=== PATIENT | male | born 1975 | race African-American/Black ===

== ENCOUNTER 2025-03-03 14:43 | Emergency (ER) | payer BC ==
[~2025-03-03] VITALS: Ht 195.6 cm; Wt 89.9 kg
[2025-03-03 15:21] LABS: Hematocrit 49.3 % (41.0-53.0); Hemoglobin 16.9 g/dL (13.5-17.5); Mean Corpuscular Hemoglobin 31.1 pg (28.0-32.0); Mean Corpuscular Volume 90.9 fL (80.0-100.0); Nucleated Red Blood Cells % 0.1 %
--- NOTE | 2025-03-03 15:33 | ED.PDOC ---
General HPI Comments A 50 YEAR OLD MALE PRESENTS TO THE ED WITH COMPLAINT OF RIGHT FLANK PAIN. PATIENT STATES HE HAS BEEN EXPERIENCING RIGHT FLANK PAIN THAT IS WORSE WITH MOVEMENT AND WHEN STANDING UP FOR THE PAST 6 DAYS. PATIENT NOTES HE WENT TO [facility] RECENTLY WHERE A CT SCAN WAS DONE WHICH SHOWED DIVERTICULOSIS, BUT NOT OTHER FINDINGS. PATIENT DENIES DYSURIA, HEMATURIA, FEVER, CHILLS, SHORTNESS OF BREATH, CHEST PAIN, ABDOMINAL PAIN, NAUSEA, VOMITIN G, HEADACHE, OR OTHER COMPLAINTS. NO OTHER SYMPTOMS OR MODIFYING FACTORS AT THIS TIME. PATIENT IS ALERT, ORIENTED X 4, AND HAS STEADY GAIT. Chief Complaint: Flank Pain Time Seen by MD: 14:55 Reviewed notes: Nurses Notes, Medications, Allergies Allergies: Coded Allergies: NO KNOWN ALLERGIES (Unverified , 03/03/25) Home Meds Active Scripts Lactulose (Lactulose) 10 Gm/15 Ml Radha, 30 ML PO BID, #280 ML Prov:REBECCA DONALD 03/03/25 Methocarbamol (Methocarbamol) 750 Mg Tab, 750 MG PO BID, #20 TAB Prov:REBECCA DONALD 03/03/25 Ibuprofen (Ibuprofen) 800 Mg Tab, 1 TAB PO TID, #40 TAB Prov:REBECCA DONALD 03/03/25 Information Source: Patient Mode of Arrival: Ambulatory Severity: Moderate Inability to void: None Timing: Days Duration: Since onset, Days Prehospital treatment: None Onset: Spontaneous Symptoms: Other (RIGHT FLANK PAIN) History of: None Location: (R) Flank Penile discharge: None Modifying factors: None associated signs and symptoms: Flank Pain, Back Pain Past Medical History PAST MEDICAL HISTORY: Denies Surgical History: Denies all surgeries Family History Family History: Reviewed,noncontributory to illness Social History Smoker: Non-Smoker Alcohol: Denies ETOH Use Drugs: Denies Drug Use Lives In: Home Constitutional: denies: chills, diaphoresis, fatigue, fever, malaise, sweats, weakness, others EENTM: denies: blurred vision, double vision, ear bleeding, ear discharge, ear drainage, ear pain, ear ringing, eye pain, eye redness, hearing loss, mouth pain, mouth swelling, nasal discharge, nose bleeding, nose congestion, nose pain, photophobia, tearing, throat pain, throat swelling, voice changes, others Respiratory: denies: cough, hemoptysis, orthopnea, SOB at rest, shortness of breath, SOB with excertion, stridor, wheezing, others Cardiovascular: denies: chest pain, dizzy spells, diaphoresis, Dyspnea on exertion, edema, irregular heart beat, left arm pain, lightheadedness, palpitations, PND, syncope, others Gastrointestinal: denies: abdomen distended, abdominal pain, blood streaked bowels, constipated, diarrhea, dysphagia, difficulty swallowing, hematemesis, melena, nausea, poor appetite, poor fluid intake, rectal bleeding, rectal pain, vomiting, others Genitourinary: reports: flank pain; denies: burning, dysuria, frequency, hematuria, incontinence, penile discharge, penile sore, pain, testicle pain, testicle swelling, urgency, others Neurological: denies: dizziness, fainting, headache, left sided numbness, left sided weakness, numbness, paresthesia, pre-existing deficit, right sided numbness, right sided weakness, seizure, speech problems, tingling, tremors, weakness, others Musculoskeletal: reports: back pain, muscle pain; denies: gout, joint pain, lennox nt swelling, muscle stiffness, neck pain, others Integumetry: denies: bruises, change in color, change in hair/nails, dryness, laceration, lesions, lumps, rash, wounds, others Allergic/Immunocompromised: denies: Difficulty Healing, Frequent Infections, Hives, Itching, others Hematologic/Lymphatic: denies: anemia, blood clots, easy bleeding, easy bruising, swollen glands, others Endocrine: denies: excessive hunger, excessive sweating, excessive thirst, excessive urination, flushing, intolerance to cold, intolerance to heat, unexplained weight gain, unexplained weight loss, others Psychiatric: reports: anxiety; denies: bipolar disorder, depression, hopeless, panic disorder, schizophrenia, sleepless, suicidal, others All Other Systems: Reviewed and Negative Physical Exam General Appearance: No Apparent Distress, Normal HEENT: Normal ENT Inspection, PERRL/EOMI, Pharynx Normal, TMs Normal Neck: Full Range of Motion, Non-Tender, Normal, Normal Inspection Respiratory: Chest Non-Tender, Lungs Clear, No Accessory Muscle Use, No Respiratory Distress, Normal Breath Sounds Cardiovascular: No Edema, No JVD, No Murmur, No Gallop, Normal Peripheral Pulses, Regular Rate/Rhythm Breast Exam: Deferred Gastrointestinal: No Organomegaly, No Pulsatile Mass, Normal Bowel Sounds, Soft, Tenderness (RIGHT FLANK, NO GUARDING AND REBOUND TENDERNESS, NO CVA TENDERNESS. ) Genitalia: Deferred Pelvic: Deferred Rectal: Deferred Extremities: No calf tenderness, Normal capillary refill, Normal inspection, Normal range of motion, Non-tender, No pedal edema Musculoskeletal : Location: Right Extremity Location: Back Apperance: Tenderness: Moderate (AND MUSC;LE SPASM ON RIGHT LOWER BACK, NO BONY TENDERNESS, SWELLING AND DEFORMITY. ) Neurologic: Alert, data integrity specialist II-XII nml as Tested, No Motor Deficits, Normal Affect, Normal Mood, No Sensory Deficits Cerebellar Function: Normal Reflexes: Normal Skin: Dry, Normal Color, Warm Peripheral Pulses: 2+ carotid (R), 2+ carotid (L) Lymphatic: No Adenopathy Was a procedure done? Was a procedure done?: No Differential Diagnosis Kidney stone (Female): N/A Kidney stone (Male): DJD, Strain, Urolithiasis, Urinary tract infection Penile/Scrotal: N/A Urinary Problem (Male): Urolithiasis, UTI, N/A X-Ray, Labs, Meds, VS Vital Signs Date Time Temp Pulse Resp B/P (MAP) Pulse Ox O2 Delivery O2 Flow Rate FiO2 03/03/25 14:47 98.3 65 13 126/79 98 98.3 Lab Test 03/03/25 15:48 03/03/25 15:02 Range/Units Urine Color Light-yellow Yellow Urine Clarity Clear Clear Urine pH 6.0 5.0-9.0 Urine Specific [place] 1.010 1.001-1.035 Urine Protein Negative Negative Urine Ketones 1+ H Negative Urine Blood Negative Negative /uL Urine Nitrite Negative Negative Urine Bilirubin Negative Negative Urine Urobilinogen Normal Negative mg/dL Urine Leukocyte Esterase Negative Negative /uL Urine RBC <1 0 - 3 /hpf Urine Microscopic WBC < 1 0-3 /HPF Urine Squamous Epithelial Cells None seen <5 /hpf Urine Bacteria None seen None Seen /hpf Urine Glucose Normal Normal mg/dL White Blood Count 8.3 4.4-10.8 10^3/uL Red Blood Count 5.42 4.5-5.90 10^6/uL Hemoglobin 16.9 13.5-17.5 g/dL Hematocrit 49.3 41.0-53.0 % Mean Corpuscular Volume 90.9 80.0-100.0 fL Mean Corpuscular Hemoglobin 31.1 28.0-32.0 pg Mean Corpuscular Hemoglobin Concent 34.2 32.0-36.0 g/dL Red Cell Distribution Width 13.6 11.8-14.3 % Platelet Count 267 140-450 10^3/uL Mean Platelet Volume 7.6 6.9-10.8 fL Neutrophils (%) (Auto) 80.5 H 37.0-80.0 % Lymphocytes (%) (Auto) 12.3 10.0-50.0 % Monocytes (%) (Auto) 6.1 0.0-12.0 % Eosinophils (%) (Auto) 0.4 0.0-7.0 % Basophils (%) (Auto) 0.7 0.0-2.0 % Neutrophils # (Auto) 6.7 1.6-8.6 10 ^3/uL Lymphocytes # (Auto) 1.0 0.4-5.4 10 ^3/uL Monocytes # (Auto) 0.5 0-1.3 10 ^3/uL Eosinophils # (Auto) 0 0-0.8 10 ^3/uL Basophils # (Auto) 0.1 0-0.2 10 ^3/uL Nucleated Red Blood Cells 0.1 % Sodium Level 139 136-145 mmol/L Potassium Level 4.2 3.5-5.1 mmol/L Chloride Level 102 98-107 mmol/L Carbon Dioxide Level 28 20-31 mmol/L Anion Gap 9 5-15 Blood Urea Nitrogen 12 9-23 mg/dL Creatinine 1.29 0.700-1.30 mg/dL Glomerular Filtration Rate Calc 67 >90 mL/min BUN/Creatinine Ratio 9.3 L 10.0-20.0 Serum Glucose 97 74-106 mg/dL Calcium Level 10.1 8.7-10.4 mg/dL Total Bilirubin 2.4 H 0.2-1.0 mg/dL Aspartate Amino Transferase (AST) 21 13-40 U/L Alanine Aminotransferase (ALT) 12 7-40 U/L Alkaline Phosphatase 68 46-116 U/L Total Protein 6.9 5.7-8.2 g/dL Albumin 4.5 3.2-4.8 g/dL Exam: CT CT AB PEL WO CON-NO ORAL OR IV History: RIGHT FLANK PAIN Comparison Study: CT ABDOMEN PELVIS WITHOUT on DOS: 01/19/23 TECHNIQUE: Multidetector CT of the abdomen AND PELVIS without IV contrast. Axial, coronal and sagittal multiplanar reformats were obtained from the axial data set by the technologist. Radiation Dose Information: CT Dose: CTDI volume is 9.81 mGy. Dose-length product is 622.33 mGy*cm FINDINGS: The lung bases are clear. Partially visualized heart is unremarkable. Liver, spleen, gallbladder, pancreas and adrenal glands are unremarkable. Kidneys and Ureters are unremarkable. Urinary Bladder is mildly distended and demonstrates Minimal wall thickening. Prostate measures 3.5 x 4.3 x 3.9 cm. Stomach is unremarkable. Small bowel loops are unremarkable. Appendix is unremarkable. Moderate amount of fecal material within the colon. No evidence of intraperitoneal free air or free fluid. No evidence of Aortic aneurysm. Mild atherosclerotic calcification of the aorta. No significant lymphadenopathy. Small Metallic density is noted over the left posterior medial mid thigh which may represent Surgical clips versus foreign bodies. Small fat containing left inguinal hernia. Tiny fat containing umbilical hernia. Nonspecific focus of calcification adjacent to the left ischial tuberosity. No evidence of acute osseous abnormalities. IMPRESSION: Minimal wall thickening of the Urinary bladder which is most likely from inadequate distention. Correlation with urinalysis is recommended is cholecystitis. Moderate amount of fecal material within the colon. ATED BY: MONICA HICKS DO DICTATED DATE/TIME: 03/03/251605 SIGNED BY: MONICA HICKS DO SIGNED DATE/TIME: 03/03/251605 CC: X-Ray, Labs, Meds, VS Comment EXTERNAL MEDICAL RECORDS REVIEWED: [NONE] INDEPENDENT HISTORIANS: [NONE] SOCIAL DETERMINANTS OF HEALTH: [NONE] LABS ORDERED: CBC, BMP, UA REVIEWED AND INTERPRETED RESULTS: NORMAL IMAGING ORDERED: CT ABD/PEL TREATMENTS ORDERED: TORADOL 60 MG IM, LACTULOSE 60ML PO PROCEDURES PERFORMED: NONE CRITICAL CARE TIME: NONE I HAVE DISCUSSED THE PATIENT WITH THE ATTENDING PHYSICIAN DR. MCKOY AND MARIBEL ADAIR WITH THE PATIENT'S PLAN OF CARE AND DISPOSITION. BASED ON HISTORY OF PRESENT ILLNESS, AND PHYSICAL EXAM, PATIENT WILL BE DISCHARGED HOME. DISCUSSED PLAN FOR DISCHARGE HOME WITH RX [LACTULOSE, MPOTRIN AND ROBAXIN ]. MEDICATION WARNINGS GIVEN. SHARED DECISION MAKING: PATIENT INSTRUCTED TO FOLLOW UP WITH PRIMARY CARE PROVIDER IN 1-2 DAYS FOR RE-EVALUATION OF SYMPTOMS. PATIENT VERBALIZES UNDERSTANDING TO RETURN TO ED FOR NEW OR WORSENING SYMPTOMS OR IF FOLLOW UP WITH PCP CANNOT BE OBTAINED. PATIENT FEELS COMFORTABLE GOING HOME AT THIS TIME. ALL QUESTIONS ADDRESSED AT TIME OF DISCHARGE. Images Reviewed?: Images reviewed and evaluated by me Time of 1ST Reevaluation: 16:56 Reevaluation 1ST: Improved Patient Education/Counseling: Diagnosis, Treatment, Need For Follow Up Family Education/Counseling: Diagnosis, Treatment, Need For Follow Up Medical Screening: No EMC Exist At This Time SEPSIS Sepsis Screen Date sepsis recognized/suspect: Mar 03, 2025 Time Sepsis recognized/suspect: 1446 Recent Procedure: No On Antibiotic Therapy: No Respiratory Rate >20: No Heart Rate >90: No Temp<36 C (96.8 F) or >38.3 C: No SBP <90 or MAP <65 mmHG: No New Acute Mental Status Change: No Is the patient on CPAP, BIPAP,: No Physician Orders Ct Ab Pel Wo Con-No Oral Or Iv (03/03/25 15:25) Vital Signs Date Time Temp Pulse Resp B/P (MAP) Pulse Ox O2 Delivery O2 Flow Rate FiO2 03/03/25 14:47 98.3 65 13 126/79 98 98.3 Laboratory Tests Test 03/03/25 15:02 White Blood Count 8.3 10^3/uL (4.4-10.8) Departure 1 Departure Time of Disposition: 17:00 Impression: Primary Impression: Low back strain Qualified Codes: S39.012A - Strain of muscle, fascia and tendon of lower back, initial encounter Additional Impression: Acute constipation Disposition: HOME / SELF CARE / HOMELESS Condition: Stable Additional Instructions: FOLLOW-UP WITH PCP IN 1 TO 2 DAYS. TAKE MEDICATIONS PRESCRIBED. RETURN TO ED FOR ANY NEW OR WORSENING SYMPTOMS. e-Prescriptions Lactulose (Lactulose) 10 Gm/15 Ml Radha 30 ML PO BID, #280 ML Prov: REBECCA DONALD 03/03/25 Methocarbamol (Methocarbamol) 750 Mg Tab 750 MG PO BID, #20 TAB Prov: REBECCA DONALD 03/03/25 Ibuprofen (Ibuprofen) 800 Mg Tab 1 TAB PO TID, #40 TAB Prov: REBECCA DONALD 03/03/25 Discharged With: Self, Spouse Critical Care Note Critical Care Time?: No Stability Stability form required: No I personally scribed for REBECCA DONALD ([email or web address]) on 03/03/25 at 15:33. Electronically submitted by Bora Noble ([employer]). I personally scribed for REBECCA DONALD ([email or web address]) on 03/03/25 at 16:19. Electronically submitted by Bora Noble ([employer]). I personally scribed for REBECCA DONALD ([email or web address]) on 03/03/25 at 16:35. Electronically submitted by Bora Noble ([employer]). I personally scribed for REBECCA DONALD ([email or web address]) on 03/03/25 at 16:39. Electronically submitted by Bora Noble ([employer]). REBECCA DONALD Mar 03, 2025 15:33
[2025-03-03 15:39] LABS: Alanine Aminotransferase 12 U/L (7-40); Albumin 4.5 g/dL (3.2-4.8); Alkaline Phosphatase 68 U/L (46-116); Anion Gap 9 (5-15); BUN/Creatinine Ratio 9.3 (10.0-20.0); Blood Urea Nitrogen 12 mg/dL (9-23); Calcium 10.1 mg/dL (8.7-10.4); Carbon Dioxide 28 mmol/L (20-31); Chloride 102 mmol/L (98-107); Glucose 97 mg/dL (74-106); Potassium 4.2 mmol/L (3.5-5.1); Sodium 139 mmol/L (136-145); Total Protein 6.9 g/dL (5.7-8.2)
[2025-03-03 15:40] LABS: Bilirubin, Total 2.4 mg/dL (0.2-1.0)
--- NOTE | 2025-03-03 16:08 | DVH ---
Exam: CT CT AB PEL WO CON-NO ORAL OR IV History: RIGHT FLANK PAIN Comparison Study: CT ABDOMEN PELVIS WITHOUT on DOS: 01/19/23 TECHNIQUE: Multidetector CT of the abdomen AND PELVIS without IV contrast. Axial, coronal and sagittal multiplanar reformats were obtained from the axial data set by the technologist. Radiation Dose Information: CT Dose: CTDI volume is 9.81 mGy. Dose-length product is 622.33 mGy*cm FINDINGS: The lung bases are clear. Partially visualized heart is unremarkable. Liver, spleen, gallbladder, pancreas and adrenal glands are unremarkable. Kidneys and Ureters are unremarkable. Urinary Bladder is mildly distended and demonstrates Minimal wall thickening. Prostate measures 3.5 x 4.3 x 3.9 cm. Stomach is unremarkable. Small bowel loops are unremarkable. Appendix is unremarkable. Moderate amount of fecal material within the colon. No evidence of intraperitoneal free air or free fluid. No evidence of Aortic aneurysm. Mild atherosclerotic calcification of the aorta. No significant lymphadenopathy. Small Metallic density is noted over the left posterior medial mid thigh which may represent Surgical clips versus foreign bodies. Small fat containing left inguinal hernia. Tiny fat containing umbilical hernia. Nonspecific focus of calcification adjacent to the left ischial tuberosity. No evidence of acute osseous abnormalities. IMPRESSION: Minimal wall thickening of the Urinary bladder which is most likely from inadequate distention. Correlation with urinalysis is recommended is cholecystitis. Moderate amount of fecal material within the colon.
[2025-03-03 16:20] LABS: Urine Protein, UAD Negative (Negative)
[2025-03-03] MEDS ORDERED: LACT10SO3 PO (16:51)
[2025-03-03] MEDS ORDERED: METH-1182 PO (16:51)
[2025-03-03] MEDS ORDERED: IBUP-1456 PO (16:51)
[2025-03-03] MEDS: KETOROLAC TROMETH 60MG/2ML VIAL IM ONE (16:52)
[2025-03-03 16:58] VITALS: BP 144/78; PULSE 50; RESP 19; TEMP 98.1; O2SAT 100
[2025-03-03] MEDS: LACTULOSE 20Gm/30ML SOLN PO ONE (17:00)
== END 2025-03-03 17:01 | disposition home or self-care (01) ==
LOC: ER 14:43
DX: S39.012A Strain of muscle, fascia and tendon of lower back, initial encounter (principal); K59.00 Constipation, unspecified; Z79.1 Long term (current) use of non-steroidal anti-inflammatories (NSAID); Z79.899 Other long term (current) drug therapy; X58.XXXA Exposure to other specified factors, initial encounter; Y93.89 Activity, other specified; Y92.89 Other specified places as the place of occurrence of the external cause; Y99.8 Other external cause status
CPT/HCPCS: 36415; 74176; 80053; 81001; 85025; 96372; 99285; J1885